=== PATIENT | female | born 1945 | race Caucasian/White ===

== ENCOUNTER 2022-04-23 11:24 | Inpatient (IN) | payer OTHER ==
[~2022-04-23 11:24] MED LIST: Iopamidol-370 76% 500 ML 1 ML ONE
[2022-04-23 12:15] LABS: Hemoglobin 8.7 g/dL (12.0-16.0); Mean Corpuscular HGB CONC 33.7 g/dL (32.0-36.0); Mean Corpuscular Hemoglobin 29.9 pg (27.0-31.0); Mean Corpuscular Volume 88.6 fl (78.0-98.0); Mean Platelet Volume 6.6 fL (7.4-10.4); Platelet Count 578 10x3/uL (130-400); RBC Distribution Width 14.8 % (11.5-14.5); Red Blood Cell (RBC) Count 2.92 mill/uL (4.20-5.40); White Blood Cell (WBC) Count 24.8 10x3/uL (4.8-10.8)
[2022-04-23 12:45] LABS: ALT (SGPT) 15 U/L (8-55); AST (SGOT) 30 U/L (5-34); Albumin 3.7 g/dL (3.4-4.8); Alkaline Phosphatase 75 U/L (40-110); Anion Gap 19 mmol/L (10-20); BUN (Urea Nitrogen) 18 mg/dL (9.8-20.1); Calc. Creatinine Clearance 0 mL/min (70-130); Calcium 9.4 mg/dL (7.8-10.44); Carbon Dioxide 21 mmol/L (23-31); Chloride 95 mmol/L (98-107); Estimated GFR 38; Glucose 146 mg/dL (83-110); Potassium 3.9 mmol/L (3.5-5.1); Protein, Total 6.7 g/dL (5.8-8.1); Sodium 131 mmol/L (136-145)
[2022-04-23 12:49] LABS: Lymphocytes 8 % (21-51); MDiff Complete? YES; Monocytes 6 % (0-10); Neutrophil 86 % (42-75); Platelet Morphology Comment Appears Increased; RBC Morphology Normal
[2022-04-23] MEDS ORDERED: Piperacillin/Tazobactam 4.5 GM VIAL ONE (13:21)
[2022-04-23] MEDS ORDERED: Morphine 4 MG/ML VIAL ONE (13:21)
[2022-04-23] MEDS ORDERED: Ondansetron PF 4 MG/2 ML Vial ONE ×2 (13:21→16:40)
[2022-04-23 14:13] LABS: Bacteria/HPF 4+ HPF (None Seen); Bilirubin Negative (Negative); Blood, Urine Negative (Negative); Clarity Turbid (Clear); Glucose, Urine (Dipstick) Normal (Negative); Ketone, Urine Negative (Negative); Leukocyte 500 Leu/uL (Negative); Nitrite Negative (Negative); Protein, Urine (Dipstick) 10 mg/dL (Neg-Trace); RBC/HPF 0-3 HPF (0-3); Specific Gravity, Urine 1.015 (1.002-1.036); Squamous Epithelial 0-3 HPF (0-3); Urobilinogen Normal mg/dL (Less than 2); WBC/HPF Greater than 50 HPF (0-3)
[2022-04-23] MEDS ORDERED: Vancomycin 1 GM/200 ML (FROZEN) BAG ONE (14:17)
[2022-04-23 15:28] LABS: Lactic Acid 2.5 mmol/L (0.5-2.2)
[2022-04-23] MEDS ORDERED: Iopamidol 15 ML ONE (15:50)
[2022-04-23] MEDS ORDERED: Ondansetron HCl/PF 4 MG/2 ML Vial IVP PRN (16:23)
[2022-04-23] MEDS ORDERED: Promethazine HCl 25 MG/ML VIAL IM PRN (16:23)
[2022-04-23] MEDS ORDERED: Linezolid 600 MG in Premix Bag 1 BAG IVPB SCH (16:30)
[2022-04-23] MEDS ORDERED: PHENYLEPHRINE-NS 100 MCG/ML 10 ML SYRINGE ONE (16:40)
[2022-04-23] MEDS ORDERED: PROPOFOL 200 MG/20 ML VIAL ONE (16:40)
[2022-04-23] MEDS ORDERED: Succinylcholine Chloride 100 MG/5 ML SYRINGE FS ONE (16:40)
[2022-04-23] MEDS: Sodium Chloride 0.9% 1,000 ML IV SCH (17:00)
[2022-04-23] MEDS ORDERED: Piperacillin/Tazobactam 3.375 GM in Sodium Chloride 0.9% 100 ML IVPB SCH (18:00)
[2022-04-23] MEDS ORDERED: Morphine 4 MG/ML VIAL SLOW IVP PRN (18:07)
[2022-04-23 20:18] VITALS: BMI 28.4
[2022-04-23] MEDS ORDERED: Vancomycin 1 GM in Premix Bag 1 BAG IVPB SCH (21:00)
[2022-04-23] MEDS: Senokot S 8.6-50 MG TAB PO SCH (21:44)
[2022-04-23] MEDS: Trospium 20 MG TAB PO SCH (21:44)
[2022-04-23] MEDS: Atorvastatin Calcium 40 MG TAB PO SCH (21:45)
[2022-04-23] MEDS: Heparin 5,000 UNITS/ML VIAL SC SCH (21:45)
[2022-04-24 03:38] LABS: #Basophils 0.1 thou/uL (0.0-0.2); #Eosinphils 0.2 thou/uL (0.0-0.7); #Lymphocytes 2.4 thou/uL (1.20-3.40); #Monocytes 1.4 thou/uL (0.11-0.59); #Neutrophils 11.8 thou/uL (1.40-6.50); %Basophils 0.4 % (0.0-1.0); %Eosinophils 1.2 % (0.0-10.0); %Lymphocytes 14.9 % (21.0-51.0); %Monocytes 8.9 % (0.0-10.0); %Neutrophils 74.5 % (42.0-75.0); Hemoglobin 6.8 g/dL (12.0-16.0); Mean Corpuscular HGB CONC 33.7 g/dL (32.0-36.0); Mean Corpuscular Hemoglobin 30.1 pg (27.0-31.0); Mean Corpuscular Volume 89.3 fl (78.0-98.0); Mean Platelet Volume 6.6 fL (7.4-10.4); Platelet Count 463 10x3/uL (130-400); Red Blood Cell (RBC) Count 2.24 mill/uL (4.20-5.40); White Blood Cell (WBC) Count 15.8 10x3/uL (4.8-10.8)
[2022-04-24 03:42] LABS: Anion Gap 11 mmol/L (10-20); BUN (Urea Nitrogen) 18 mg/dL (9.8-20.1); Calc. Creatinine Clearance 50 mL/min (70-130); Calcium 8.5 mg/dL (7.8-10.44); Carbon Dioxide 26 mmol/L (23-31); Chloride 99 mmol/L (98-107); Estimated GFR 50; Glucose 95 mg/dL (83-110); Magnesium 1.8 mg/dL (1.6-2.6); Sodium 133 mmol/L (136-145)
[2022-04-24 03:45] LABS: Phosphorus 3.8 mg/dL (2.3-4.7)
[2022-04-24] MEDS: Linezolid 600 MG in Premix Bag 1 BAG IVPB SCH ×2 (05:32→16:45)
[2022-04-24] MEDS: Levothyroxine Sodium 75 MCG TAB PO SCH (05:32)
[2022-04-24] MEDS: Sodium Chloride 0.9% 1,000 ML IV SCH ×2 (05:33→14:14)
[2022-04-24] MEDS ORDERED: Electrolyte Replacement Protocol 1 EACH FS ONE (07:41)
[2022-04-24] MEDS ORDERED: Electrolyte Replacement Protocol FS PRN (08:00)
[2022-04-24] MEDS: Heparin 5,000 UNITS/ML VIAL SC SCH ×3 (09:44→20:17)
[2022-04-24] MEDS: Clopidogrel Bisulfate 75 MG TAB PO SCH (09:44)
[2022-04-24] MEDS: Senokot S 8.6-50 MG TAB PO SCH ×2 (10:01→20:16)
[2022-04-24] MEDS: Trospium 20 MG TAB PO SCH ×2 (10:02→20:17)
[2022-04-24] MEDS ORDERED: Magnesium 2 GM/50 ML(in water) 2 GM in Premix Bag 1 BAG IVPB SCH (13:00)
[2022-04-24] MEDS ORDERED: Potassium Chloride 20 MEQ TAB PO SCH (13:15)
[2022-04-24 17:14] LABS: Potassium 3.5 mmol/L (3.5-5.1)
[2022-04-24] MEDS: Atorvastatin Calcium 40 MG TAB PO SCH (20:17)
[2022-04-25] MEDS: Sodium Chloride 0.9% 1,000 ML IV SCH ×2 (01:32→12:19)
[2022-04-25 03:55] LABS: #Basophils 0.1 thou/uL (0.0-0.2); #Eosinphils 0.4 thou/uL (0.0-0.7); #Lymphocytes 2.4 thou/uL (1.20-3.40); #Monocytes 1.1 thou/uL (0.11-0.59); #Neutrophils 8.4 thou/uL (1.40-6.50); %Basophils 0.5 % (0.0-1.0); %Lymphocytes 19.2 % (21.0-51.0); %Neutrophils 68.3 % (42.0-75.0); Hemoglobin 6.8 g/dL (12.0-16.0); Mean Corpuscular HGB CONC 33.8 g/dL (32.0-36.0); Mean Corpuscular Hemoglobin 30.6 pg (27.0-31.0); Mean Corpuscular Volume 90.6 fl (78.0-98.0); Mean Platelet Volume 6.4 fL (7.4-10.4); Platelet Count 434 10x3/uL (130-400); RBC Distribution Width 15.2 % (11.5-14.5); Red Blood Cell (RBC) Count 2.22 mill/uL (4.20-5.40); White Blood Cell (WBC) Count 12.3 10x3/uL (4.8-10.8)
[2022-04-25 04:17] LABS: ALT (SGPT) 11 U/L (8-55); AST (SGOT) 21 U/L (5-34); Albumin 3.1 g/dL (3.4-4.8); Alkaline Phosphatase 66 U/L (40-110); Anion Gap 13 mmol/L (10-20); BUN (Urea Nitrogen) 14 mg/dL (9.8-20.1); Bilirubin, Total 1.5 mg/dL (0.2-1.2); Calc. Creatinine Clearance 68 mL/min (70-130); Calcium 8.2 mg/dL (7.8-10.44); Carbon Dioxide 25 mmol/L (23-31); Chloride 101 mmol/L (98-107); Estimated GFR 72; Globulin 2.1 g/dL (2.4-3.5); Glucose 101 mg/dL (83-110); Potassium 3.7 mmol/L (3.5-5.1); Protein, Total 5.2 g/dL (5.8-8.1); Sodium 135 mmol/L (136-145)
[2022-04-25] MEDS: Levothyroxine Sodium 75 MCG TAB PO SCH (05:18)
[2022-04-25] MEDS: Linezolid 600 MG in Premix Bag 1 BAG IVPB SCH ×2 (05:18→17:14)
[2022-04-25] MEDS ORDERED: Magnesium 2 GM/50 ML(in water) 2 GM in Premix Bag 1 BAG IVPB SCH (08:00)
[2022-04-25] MEDS: Trospium 20 MG TAB PO SCH ×2 (08:15→19:51)
[2022-04-25] MEDS: PHOS-NAK 1 PKT PACK PO SCH ×2 (08:15→13:30)
[2022-04-25] MEDS: Senokot S 8.6-50 MG TAB PO SCH ×2 (08:15→19:51)
[2022-04-25] MEDS: Clopidogrel Bisulfate 75 MG TAB PO SCH (08:15)
[2022-04-25] MEDS: Heparin 5,000 UNITS/ML VIAL SC SCH ×3 (08:15→19:50)
[2022-04-25] MEDS ORDERED: Dextrose 5%-Lactated Ringers 1,000 ML IV SCH (13:15)
[2022-04-25 15:32] LABS: Reticulocyte Count 7.6 % (0.5-1.5)
[2022-04-25 15:55] LABS: Iron 168 ug/dL (50-170); Iron Binding Capacity, Total 254 mcg/dL (265-497)
[2022-04-25] MEDS ORDERED: Lactated Ringer's 1,000 ML IV SCH (18:15)
[2022-04-25] MEDS: Atorvastatin Calcium 40 MG TAB PO SCH (19:51)
[2022-04-25] MEDS ORDERED: OLANZapine 2.5 MG TAB PO SCH (20:30)
[2022-04-26] MEDS: Linezolid 600 MG in Premix Bag 1 BAG IVPB SCH ×2 (00:10→12:19)
[2022-04-26] MEDS: Levothyroxine Sodium 75 MCG TAB PO SCH (05:16)
[2022-04-26 07:15] LABS: #Eosinphils 0.3 thou/uL (0.0-0.7); #Lymphocytes 1.7 thou/uL (1.20-3.40); #Monocytes 1.1 thou/uL (0.11-0.59); #Neutrophils 9.7 thou/uL (1.40-6.50); %Basophils 0.4 % (0.0-1.0); %Eosinophils 2.2 % (0.0-10.0); %Lymphocytes 13.3 % (21.0-51.0); %Monocytes 8.6 % (0.0-10.0); %Neutrophils 75.6 % (42.0-75.0); Anion Gap 13 mmol/L (10-20); BUN (Urea Nitrogen) 9 mg/dL (9.8-20.1); Calc. Creatinine Clearance 80 mL/min (70-130); Calcium 8.9 mg/dL (7.8-10.44); Carbon Dioxide 26 mmol/L (23-31); Chloride 101 mmol/L (98-107); Estimated GFR 87; Glucose 107 mg/dL (83-110); Hemoglobin 8.9 g/dL (12.0-16.0); Mean Corpuscular HGB CONC 32.7 g/dL (32.0-36.0); Mean Corpuscular Volume 91.9 fl (78.0-98.0); Mean Platelet Volume 6.4 fL (7.4-10.4); Platelet Count 511 10x3/uL (130-400); Potassium 3.5 mmol/L (3.5-5.1); Red Blood Cell (RBC) Count 2.97 mill/uL (4.20-5.40); Sodium 136 mmol/L (136-145); White Blood Cell (WBC) Count 12.8 10x3/uL (4.8-10.8)
[2022-04-26] MEDS ORDERED: Potassium Chloride 20 MEQ TAB PO SCH (09:00)
[2022-04-26] MEDS: Heparin 5,000 UNITS/ML VIAL SC SCH ×3 (09:55→20:07)
[2022-04-26] MEDS: Clopidogrel Bisulfate 75 MG TAB PO SCH (09:55)
[2022-04-26] MEDS: Trospium 20 MG TAB PO SCH ×2 (09:56→20:04)
[2022-04-26] MEDS: Senokot S 8.6-50 MG TAB PO SCH ×2 (09:56→20:04)
[2022-04-26] MEDS: Atorvastatin Calcium 40 MG TAB PO SCH (20:04)
[2022-04-27] MEDS ORDERED: Lisinopril 10 MG TAB PO SCH (00:30)
[2022-04-27] MEDS: Linezolid 600 MG in Premix Bag 1 BAG IVPB SCH ×2 (01:04→13:29)
[2022-04-27] MEDS: Levothyroxine Sodium 75 MCG TAB PO SCH (05:00)
[2022-04-27 08:43] LABS: #Eosinphils 0.3 thou/uL (0.0-0.7); #Lymphocytes 1.9 thou/uL (1.20-3.40); #Neutrophils 9.1 thou/uL (1.40-6.50); %Basophils 0.4 % (0.0-1.0); %Eosinophils 2.6 % (0.0-10.0); %Lymphocytes 15.1 % (21.0-51.0); %Monocytes 8.4 % (0.0-10.0); %Neutrophils 73.5 % (42.0-75.0); Hemoglobin 9.4 g/dL (12.0-16.0); Mean Corpuscular HGB CONC 31.7 g/dL (32.0-36.0); Mean Corpuscular Hemoglobin 29.8 pg (27.0-31.0); Mean Corpuscular Volume 93.9 fl (78.0-98.0); Mean Platelet Volume 6.2 fL (7.4-10.4); Platelet Count 483 10x3/uL (130-400); RBC Distribution Width 15.5 % (11.5-14.5); Red Blood Cell (RBC) Count 3.16 mill/uL (4.20-5.40); White Blood Cell (WBC) Count 12.3 10x3/uL (4.8-10.8)
[2022-04-27 08:55] LABS: Anion Gap 13 mmol/L (10-20); BUN (Urea Nitrogen) 8 mg/dL (9.8-20.1); Calc. Creatinine Clearance 82 mL/min (70-130); Calcium 8.6 mg/dL (7.8-10.44); Carbon Dioxide 24 mmol/L (23-31); Chloride 100 mmol/L (98-107); Estimated GFR 88; Glucose 92 mg/dL (83-110); Potassium 3.6 mmol/L (3.5-5.1); Sodium 133 mmol/L (136-145)
[2022-04-27] MEDS: Heparin 5,000 UNITS/ML VIAL SC SCH ×3 (09:30→21:33)
[2022-04-27] MEDS: Clopidogrel Bisulfate 75 MG TAB PO SCH (09:32)
[2022-04-27] MEDS: Trospium 20 MG TAB PO SCH ×2 (09:32→20:16)
[2022-04-27] MEDS: Senokot S 8.6-50 MG TAB PO SCH ×2 (09:32→20:16)
[2022-04-27 10:54] LABS: Band 3 % (5-11)
[2022-04-27 10:56] LABS: Eosinophils 1 % (0-10); Lymphocytes 16 % (21-51); Monocytes 9 % (0-10); Neutrophil 71 % (42-75)
[2022-04-27] MEDS: Atorvastatin Calcium 40 MG TAB PO SCH (20:16)
[2022-04-27] MEDS: Linezolid 600 MG TAB PO SCH (20:16)
[2022-04-28] MEDS: Levothyroxine Sodium 75 MCG TAB PO SCH (05:36)
[2022-04-28 07:07] LABS: #Eosinphils 0.5 thou/uL (0.0-0.7); #Lymphocytes 1.3 thou/uL (1.20-3.40); #Monocytes 0.8 thou/uL (0.11-0.59); %Basophils 0.2 % (0.0-1.0); %Lymphocytes 10.9 % (21.0-51.0); %Monocytes 7.1 % (0.0-10.0); %Neutrophils 77.8 % (42.0-75.0); Hemoglobin 9.9 g/dL (12.0-16.0); Mean Corpuscular Hemoglobin 30.4 pg (27.0-31.0); Mean Corpuscular Volume 92.2 fl (78.0-98.0); Mean Platelet Volume 6.2 fL (7.4-10.4); Platelet Count 456 10x3/uL (130-400); RBC Distribution Width 15.6 % (11.5-14.5); Red Blood Cell (RBC) Count 3.25 mill/uL (4.20-5.40); White Blood Cell (WBC) Count 11.6 10x3/uL (4.8-10.8)
[2022-04-28 07:33] LABS: Anion Gap 12 mmol/L (10-20); BUN (Urea Nitrogen) 11 mg/dL (9.8-20.1); Calc. Creatinine Clearance 72 mL/min (70-130); Calcium 8.7 mg/dL (7.8-10.44); Carbon Dioxide 26 mmol/L (23-31); Chloride 100 mmol/L (98-107); Estimated GFR 77; Glucose 98 mg/dL (83-110); Potassium 3.5 mmol/L (3.5-5.1); Sodium 134 mmol/L (136-145)
[2022-04-28] MEDS ORDERED: Potassium Chloride 20 MEQ TAB PO SCH (09:00)
[2022-04-28] MEDS: Trospium 20 MG TAB PO SCH ×2 (09:01→22:35)
[2022-04-28] MEDS: Senokot S 8.6-50 MG TAB PO SCH ×2 (09:01→22:35)
[2022-04-28] MEDS: Linezolid 600 MG TAB PO SCH (09:02)
[2022-04-28] MEDS: Heparin 5,000 UNITS/ML VIAL SC SCH (10:14)
[2022-04-28] MEDS: Atorvastatin Calcium 40 MG TAB PO SCH (22:35)
[2022-04-28] MEDS: Linezolid 600 MG in Premix Bag 1 BAG IVPB SCH (22:36)
[2022-04-29] MEDS: Levothyroxine Sodium 75 MCG TAB PO SCH (06:36)
[2022-04-29 06:52] LABS: #Eosinphils 0.5 thou/uL (0.0-0.7); #Lymphocytes 1.7 thou/uL (1.20-3.40); #Monocytes 0.7 thou/uL (0.11-0.59); #Neutrophils 7.2 thou/uL (1.40-6.50); %Basophils 0.2 % (0.0-1.0); %Eosinophils 4.6 % (0.0-10.0); %Lymphocytes 16.5 % (21.0-51.0); %Monocytes 7.3 % (0.0-10.0); %Neutrophils 71.4 % (42.0-75.0); Mean Corpuscular HGB CONC 33.4 g/dL (32.0-36.0); Mean Corpuscular Hemoglobin 30.9 pg (27.0-31.0); Mean Corpuscular Volume 92.7 fl (78.0-98.0); Mean Platelet Volume 6.1 fL (7.4-10.4); Platelet Count 435 10x3/uL (130-400); Red Blood Cell (RBC) Count 2.91 mill/uL (4.20-5.40)
[2022-04-29 07:11] LABS: Anion Gap 13 mmol/L (10-20); BUN (Urea Nitrogen) 14 mg/dL (9.8-20.1); Calc. Creatinine Clearance 73 mL/min (70-130); Calcium 8.8 mg/dL (7.8-10.44); Carbon Dioxide 22 mmol/L (23-31); Chloride 103 mmol/L (98-107); Estimated GFR 78; Glucose 101 mg/dL (83-110); Potassium 3.7 mmol/L (3.5-5.1); Sodium 134 mmol/L (136-145)
[2022-04-29] MEDS: Linezolid 600 MG in Premix Bag 1 BAG IVPB SCH ×2 (09:41→20:52)
[2022-04-29] MEDS: Senokot S 8.6-50 MG TAB PO SCH ×2 (09:42→20:53)
[2022-04-29] MEDS: Trospium 20 MG TAB PO SCH ×2 (09:43→20:53)
[2022-04-29] MEDS: Atorvastatin Calcium 40 MG TAB PO SCH (20:53)
[2022-04-30] MEDS ORDERED: cloNIDine 0.1 MG TAB PO SCH (01:30)
[2022-04-30] MEDS: Levothyroxine Sodium 75 MCG TAB PO SCH (05:03)
[2022-04-30 06:36] LABS: Hemoglobin 9.1 g/dL (12.0-16.0); Mean Corpuscular HGB CONC 33.3 g/dL (32.0-36.0); Mean Corpuscular Hemoglobin 30.9 pg (27.0-31.0); Mean Corpuscular Volume 92.8 fl (78.0-98.0); Platelet Count 433 10x3/uL (130-400); Red Blood Cell (RBC) Count 2.94 mill/uL (4.20-5.40); White Blood Cell (WBC) Count 9.2 10x3/uL (4.8-10.8)
[2022-04-30] MEDS: Linezolid 600 MG in Premix Bag 1 BAG IVPB SCH ×2 (09:18→21:00)
[2022-04-30] MEDS: Senokot S 8.6-50 MG TAB PO SCH ×2 (09:20→20:36)
[2022-04-30] MEDS: Trospium 20 MG TAB PO SCH ×2 (09:20→20:34)
[2022-04-30] MEDS: Atorvastatin Calcium 40 MG TAB PO SCH (20:34)
[2022-05-01] MEDS: Levothyroxine Sodium 75 MCG TAB PO SCH (06:05)
[2022-05-01 07:23] LABS: Hemoglobin 9.8 g/dL (12.0-16.0); Mean Corpuscular HGB CONC 32.7 g/dL (32.0-36.0); Mean Corpuscular Hemoglobin 30.5 pg (27.0-31.0); Mean Corpuscular Volume 93.4 fl (78.0-98.0); Mean Platelet Volume 5.9 fL (7.4-10.4); Platelet Count 451 10x3/uL (130-400); RBC Distribution Width 15.9 % (11.5-14.5); White Blood Cell (WBC) Count 8.1 10x3/uL (4.8-10.8)
[2022-05-01] MEDS: Senokot S 8.6-50 MG TAB PO SCH ×2 (08:45→20:59)
[2022-05-01] MEDS: Trospium 20 MG TAB PO SCH ×2 (08:45→20:59)
[2022-05-01] MEDS: Linezolid 600 MG in Premix Bag 1 BAG IVPB SCH ×2 (08:45→21:10)
[2022-05-01] MEDS ORDERED: Acetaminophen 325 MG TAB PO PRN (10:43)
[2022-05-01] MEDS: HYDROcodone/Acetaminophen 5/325 mg Tablet PO PRN ×2 (12:03→20:59)
[2022-05-01] MEDS: Atorvastatin Calcium 40 MG TAB PO SCH (21:00)
[2022-05-02] MEDS: Levothyroxine Sodium 75 MCG TAB PO SCH (05:45)
[2022-05-02] MEDS: Trospium 20 MG TAB PO SCH ×2 (08:13→21:00)
[2022-05-02] MEDS: Linezolid 600 MG in Premix Bag 1 BAG IVPB SCH ×2 (08:13→21:03)
[2022-05-02] MEDS: HYDROcodone/Acetaminophen 5/325 mg Tablet PO PRN ×2 (08:13→21:00)
[2022-05-02] MEDS: Senokot S 8.6-50 MG TAB PO SCH ×2 (08:13→20:59)
[2022-05-02] MEDS: Lisinopril 10 MG TAB PO SCH (09:39)
[2022-05-02] MEDS: Atorvastatin Calcium 40 MG TAB PO SCH (20:59)
[2022-05-03] MEDS: Levothyroxine Sodium 75 MCG TAB PO SCH (05:11)
[2022-05-03] MEDS: Senokot S 8.6-50 MG TAB PO SCH ×2 (08:28→19:49)
[2022-05-03] MEDS: Linezolid 600 MG in Premix Bag 1 BAG IVPB SCH ×2 (08:28→19:50)
[2022-05-03] MEDS: Trospium 20 MG TAB PO SCH ×2 (08:28→19:49)
[2022-05-03] MEDS: Lisinopril 10 MG TAB PO SCH (08:29)
[2022-05-03 08:39] LABS: #Basophils 0.1 thou/uL (0.0-0.2); #Eosinphils 0.5 thou/uL (0.0-0.7); #Lymphocytes 1.6 thou/uL (1.20-3.40); #Monocytes 0.6 thou/uL (0.11-0.59); #Neutrophils 6.3 thou/uL (1.40-6.50); %Basophils 0.6 % (0.0-1.0); %Eosinophils 5.4 % (0.0-10.0); %Lymphocytes 17.5 % (21.0-51.0); %Monocytes 6.7 % (0.0-10.0); %Neutrophils 69.8 % (42.0-75.0); Hemoglobin 9.6 g/dL (12.0-16.0); Mean Corpuscular HGB CONC 33.8 g/dL (32.0-36.0); Mean Corpuscular Hemoglobin 31.7 pg (27.0-31.0); Mean Corpuscular Volume 93.8 fl (78.0-98.0); Mean Platelet Volume 5.9 fL (7.4-10.4); Platelet Count 406 10x3/uL (130-400); RBC Distribution Width 16.1 % (11.5-14.5); Red Blood Cell (RBC) Count 3.01 mill/uL (4.20-5.40)
[2022-05-03 08:50] LABS: PTT 28.9 sec (22.9-36.1); Prothrombin Time 13.8 sec (12.0-14.7)
[2022-05-03 08:58] LABS: Anion Gap 9 mmol/L (10-20); BUN (Urea Nitrogen) 14 mg/dL (9.8-20.1); Calc. Creatinine Clearance 66 mL/min (70-130); Calcium 8.8 mg/dL (7.8-10.44); Carbon Dioxide 28 mmol/L (23-31); Chloride 98 mmol/L (98-107); Estimated GFR 69; Glucose 94 mg/dL (83-110); Potassium 3.5 mmol/L (3.5-5.1); Sodium 131 mmol/L (136-145)
[2022-05-03] MEDS: Sodium Chloride 0.9% 1,000 ML IV SCH (10:59)
[2022-05-03] MEDS ORDERED: Potassium Chloride 20 MEQ TAB PO SCH (12:45)
[2022-05-03] MEDS: HYDROcodone/Acetaminophen 5/325 mg Tablet PO PRN (19:50)
[2022-05-03] MEDS: Atorvastatin Calcium 40 MG TAB PO SCH (19:50)
[2022-05-04] MEDS: Sodium Chloride 0.9% 1,000 ML IV SCH ×3 (00:52→21:24)
[2022-05-04 01:11] LABS: SARS-CoV-2 NAA Rapid Test Not Detected (NotDetected)
[2022-05-04] MEDS: Levothyroxine Sodium 75 MCG TAB PO SCH (05:40)
[2022-05-04 07:49] LABS: #Basophils 0.1 thou/uL (0.0-0.2); #Eosinphils 0.5 thou/uL (0.0-0.7); #Lymphocytes 1.3 thou/uL (1.20-3.40); #Monocytes 0.5 thou/uL (0.11-0.59); %Basophils 0.9 % (0.0-1.0); %Eosinophils 6.7 % (0.0-10.0); %Lymphocytes 17.4 % (21.0-51.0); %Monocytes 6.8 % (0.0-10.0); %Neutrophils 68.2 % (42.0-75.0); Hemoglobin 8.7 g/dL (12.0-16.0); Mean Corpuscular Hemoglobin 31.1 pg (27.0-31.0); Mean Corpuscular Volume 94.3 fl (78.0-98.0); Mean Platelet Volume 5.8 fL (7.4-10.4); Platelet Count 344 10x3/uL (130-400); RBC Distribution Width 16.3 % (11.5-14.5); Red Blood Cell (RBC) Count 2.81 mill/uL (4.20-5.40); White Blood Cell (WBC) Count 7.3 10x3/uL (4.8-10.8)
[2022-05-04 08:01] LABS: Anion Gap 11 mmol/L (10-20); BUN (Urea Nitrogen) 11 mg/dL (9.8-20.1); Calc. Creatinine Clearance 72 mL/min (70-130); Calcium 8.4 mg/dL (7.8-10.44); Carbon Dioxide 23 mmol/L (23-31); Chloride 102 mmol/L (98-107); Estimated GFR 77; Glucose 92 mg/dL (83-110); Potassium 3.7 mmol/L (3.5-5.1); Sodium 132 mmol/L (136-145)
[2022-05-04] MEDS: Lisinopril 10 MG TAB PO SCH (08:38)
[2022-05-04] MEDS: Senokot S 8.6-50 MG TAB PO SCH ×2 (08:38→19:39)
[2022-05-04] MEDS: Linezolid 600 MG in Premix Bag 1 BAG IVPB SCH ×2 (08:38→19:39)
[2022-05-04] MEDS: Trospium 20 MG TAB PO SCH ×2 (08:38→19:39)
[2022-05-04] MEDS ORDERED: Dexamethasone 20 MG/5 ML VIAL ONE (11:41)
[2022-05-04] MEDS ORDERED: PHENYLEPHRINE-NS 100 MCG/ML 10 ML SYRINGE ONE ×2 (11:41→11:59)
[2022-05-04] MEDS ORDERED: Ondansetron PF 4 MG/2 ML Vial ONE (11:41)
[2022-05-04] MEDS ORDERED: Iopamidol 30 ML ONE (11:45)
[2022-05-04] MEDS ORDERED: fentaNYL PF 100 MCG/2 ML SYRINGE ONE (11:59)
[2022-05-04] MEDS ORDERED: Phenazopyridine HCl 100 MG TAB PO PRN (13:15)
[2022-05-04] MEDS ORDERED: Fentanyl 100 MCG/2 ML VIAL ONE (13:25)
[2022-05-04] MEDS: Docusate 100 MG CAP PO SCH (19:39)
[2022-05-04] MEDS: Atorvastatin Calcium 40 MG TAB PO SCH (19:40)
[2022-05-04] MEDS: HYDROcodone/Acetaminophen 5/325 mg Tablet PO PRN (19:40)
[2022-05-05] MEDS: Levothyroxine Sodium 75 MCG TAB PO SCH (06:27)
[2022-05-05 07:17] LABS: #Lymphocytes 1.9 thou/uL (1.20-3.40); #Monocytes 0.6 thou/uL (0.11-0.59); #Neutrophils 5.5 thou/uL (1.40-6.50); %Basophils 0.3 % (0.0-1.0); %Eosinophils 0.5 % (0.0-10.0); %Lymphocytes 23.3 % (21.0-51.0); %Monocytes 7.9 % (0.0-10.0); Hemoglobin 8.7 g/dL (12.0-16.0); Mean Corpuscular HGB CONC 33.7 g/dL (32.0-36.0); Mean Corpuscular Hemoglobin 31.7 pg (27.0-31.0); Mean Corpuscular Volume 94.1 fl (78.0-98.0); Mean Platelet Volume 6.1 fL (7.4-10.4); Platelet Count 330 10x3/uL (130-400); RBC Distribution Width 16.1 % (11.5-14.5); Red Blood Cell (RBC) Count 2.75 mill/uL (4.20-5.40); White Blood Cell (WBC) Count 8.1 10x3/uL (4.8-10.8)
[2022-05-05 07:32] LABS: Anion Gap 11 mmol/L (10-20); BUN (Urea Nitrogen) 12 mg/dL (9.8-20.1); Calc. Creatinine Clearance 70 mL/min (70-130); Calcium 8.6 mg/dL (7.8-10.44); Carbon Dioxide 23 mmol/L (23-31); Chloride 102 mmol/L (98-107); Estimated GFR 74; Glucose 88 mg/dL (83-110); Potassium 3.7 mmol/L (3.5-5.1); Sodium 132 mmol/L (136-145)
[2022-05-05] MEDS: Linezolid 600 MG in Premix Bag 1 BAG IVPB SCH (10:05)
[2022-05-05] MEDS: Senokot S 8.6-50 MG TAB PO SCH (10:06)
[2022-05-05] MEDS: Trospium 20 MG TAB PO SCH (10:07)
[2022-05-05] MEDS: Lisinopril 10 MG TAB PO SCH (10:08)
[2022-05-05] MEDS: Docusate 100 MG CAP PO SCH (10:08)
[2022-05-05] MEDS: Sodium Chloride 0.9% 1,000 ML IV SCH (10:13)
[2022-05-05 13:59] VITALS: BP 160/80; TEMP 98.3
[2022-05-07 15:13] LABS: CA Oxalate Dihydrate 20 % (.); CA Oxalate Monohydrate 70 % (.); Color Brown (.); Stone Weight 23 mg (.)
== END 2022-05-05 16:52 | DRG 853 ==
LOC: ERS 11:24 → SDC 15:56 → IMCU/EMU 20:02 → T4-B 04-25 18:48
PROVIDERS: ADMIT Family Medicine; ATTEND Internal Medicine
PROC: 0T768DZ Dilation of Right Ureter with Intraluminal Device, Via Natural or Artificial Opening Endoscopic (ICD-10-PCS; principal; 2022-04-23)
PROC: 30233N1 Transfusion of Nonautologous Red Blood Cells into Peripheral Vein, Percutaneous Approach (ICD-10-PCS; 2022-04-23)
PROC: 3E03329 Introduction of Other Anti-infective into Peripheral Vein, Percutaneous Approach (ICD-10-PCS; 2022-04-23)
PROC: 0T768DZ Dilation of Right Ureter with Intraluminal Device, Via Natural or Artificial Opening Endoscopic (ICD-10-PCS; 2022-05-04)
PROC: 0TC08ZZ Extirpation of Matter from Right Kidney, Via Natural or Artificial Opening Endoscopic (ICD-10-PCS; 2022-05-04)
PROC: 0TP98DZ Removal of Intraluminal Device from Ureter, Via Natural or Artificial Opening Endoscopic (ICD-10-PCS; 2022-05-04)
PROC: BT1D1ZZ Fluoroscopy of Right Kidney, Ureter and Bladder using Low Osmolar Contrast (ICD-10-PCS; 2022-05-04)
DX: A41.81 Sepsis due to Enterococcus (principal); G93.41 Metabolic encephalopathy; N17.9 Acute kidney failure, unspecified; N13.6 Pyonephrosis; Z16.21 Resistance to vancomycin; N30.01 Acute cystitis with hematuria; I50.32 Chronic diastolic (congestive) heart failure; Z96.641 Presence of right artificial hip joint; Z66 Do not resuscitate; I48.91 Unspecified atrial fibrillation; I11.0 Hypertensive heart disease with heart failure; I50.9 Heart failure, unspecified; E03.9 Hypothyroidism, unspecified; N28.1 Cyst of kidney, acquired; D64.9 Anemia, unspecified; R33.9 Retention of urine, unspecified; R65.20 Severe sepsis without septic shock; E78.5 Hyperlipidemia, unspecified; Z20.822 Contact with and (suspected) exposure to COVID-19; K21.9 Gastro-esophageal reflux disease without esophagitis; Z82.49 Family history of ischemic heart disease and other diseases of the circulatory system; Z90.710 Acquired absence of both cervix and uterus; Z86.73 Personal history of transient ischemic attack (TIA), and cerebral infarction without residual deficits; Z83.3 Family history of diabetes mellitus; Z79.82 Long term (current) use of aspirin; Z79.890 Hormone replacement therapy; Z79.899 Other long term (current) drug therapy; Z98.49 Cataract extraction status, unspecified eye
CPT/HCPCS: 36415; 36416; 36430; 70450; 70551; 71045; 74177; 74420; 80048; 80053; 81003; 81015; 82365; 82728; 83540; 83550; 83605; 83735; 84100; 84145; 84484; 85025; 85027; 85046; 85060; 85610; 85730; 86850; 86900; 86901; 87040; 87077; 87086; 87186; 88300; 93005; 93306; 96361; 96365; 96375; C1769; C2617; J1100; J1644; J1650; J2020; J2270; J2405; J2543; J2704; J3010; J3370-JW; J3475; J7050; P9016; Q9967; U0002